=== PATIENT | male | born 1985 | race Caucasian/White ===

== ENCOUNTER 2023-03-20 14:36 | Emergency (ER) | payer OTHER, SELFPAY ==
[2023-03-20 14:51] VITALS: BP 141/86; PULSE 56; RESP 18; TEMP 37; O2SAT 100; BMI 24.3
--- NOTE | 2023-03-20 14:55 | DI.RAD.S_ITS ---
PROCEDURE: XR HAND RT MIN 3V INDICATIONS: right top of hand injury TECHNIQUE: 3 views of the hand(s) acquired. COMPARISON: None. FINDINGS: Bones: No fractures or dislocations. Carpal bones are normally aligned. No suspicious bony lesions. Soft tissues: No suspicious soft tissue calcifications. IMPRESSION: No visualized acute fracture or dislocation. However, if clinical concern and/or pain persist, short interval imaging followup in 7-10 days is recommended, as occult injury cannot be definitively excluded. Dictated by: Lea Seaman M.D. on 03/20/2023 at 15:37 Approved by: Lea Seaman M.D. on 03/20/2023 at 15:38
--- NOTE | 2023-03-20 16:53 | ED.UPPEXIN ---
HPI - Extremity Injury (Upper) <Anali Layton PA-C - Last Filed: 03/20/23 16:57> General Chief Complaint: Extremity Injury, Upper Stated Complaint: Right hand injury Time Seen by Provider: 03/20/23 16:47 Source: patient Mode of arrival: Ambulatory History of Present Illness HPI narrative: Patient is a 37-year-old male who was working with a wrench against a wall when the wrench low back and hit him on the back of the hand while at his place of employment. He immediately had significant pain and swelling of the dorsum of the hand. He applied ice and came to the emergency room. He is no history of significant injury to this hand. He is no significant past medical history. The pain was initially 8/10 but is now 2/10. Related Data Allergies Allergy/AdvReac Type Severity Reaction Status Date / Time No Known Drug Allergies Allergy Verified 03/20/23 14:55 Review of Systems <Anali Layton PA-C - Last Filed: 03/20/23 16:57> Review of Systems ROS Unobtainable: All systems reviewed & are unremarkable except as noted in HPI and below Patient History <Anali Layton PA-C - Last Filed: 03/20/23 16:57> Social History Smoking Status: Never smoker Smoking Status: Never smoker alcohol intake frequency: holidays/special occasions only Substance Use Type: marijuana Exam <Anali Layton PA-C - Last Filed: 03/20/23 16:57> Narrative Exam Narrative: GENERAL: 37 year old patient appears stated age. Well-developed patient, in no distress. NEURO: AOx3. HEAD: Atraumatic. Normocephalic. EYES: Pupils equal round and reactive. Extraocular motions intact. No scleral icterus. No injection or drainage. ENT: Nose without bleeding or purulent drainage. Airway patent. RESPIRATORY: No distress or increased work of breathing EXTREMITIES: 4 x 2 cm area of edema with mild erythema over the dorsum of the right hand. There is no chin in neurovascular exam to the distal fingers. There is no bony tenderness. SKIN: No rash or erythema of visible areas Initial Vital Signs Initial Vital Signs: Vital Signs Temperature 98.6 F 03/20/23 14:51 Pulse Rate 56 L 03/20/23 14:51 Respiratory Rate 18 03/20/23 14:51 Blood Pressure 141/86 H 03/20/23 14:51 Pulse Oximetry 100 03/20/23 14:51 Oxygen Delivery Method Room Air 03/20/23 14:51 <Lanre Beatty MD - Last Filed: 03/20/23 18:04> Initial Vital Signs Initial Vital Signs: Vital Signs Temperature 98.6 F 03/20/23 14:51 Pulse Rate 56 L 03/20/23 14:51 Respiratory Rate 18 03/20/23 14:51 Blood Pressure 141/86 H 03/20/23 14:51 Pulse Oximetry 100 03/20/23 14:51 Oxygen Delivery Method Room Air 03/20/23 14:51 Course <Anali Layton PA-C - Last Filed: 03/20/23 16:57> Orders Ordered: ED Orders 03/20/23 14:55 XR hand RT min 3V Stat Vital Signs Vital signs: Vital Signs - 8 hr 03/20/23 14:51 Temperature 98.6 F Pulse Rate 56 L Respiratory Rate 18 Blood Pressure 141/86 H Pulse Oximetry 100 Oxygen Delivery Method Room Air <Lanre Beatty MD - Last Filed: 03/20/23 18:04> Orders Ordered: ED Orders 03/20/23 14:55 XR hand RT min 3V Stat Vital Signs Vital signs: Vital Signs - 8 hr 03/20/23 14:51 Temperature 98.6 F Pulse Rate 56 L Respiratory Rate 18 Blood Pressure 141/86 H Pulse Oximetry 100 Oxygen Delivery Method Room Air MDM - Extremity Injury (Upper) <Anali Layton PA-C - Last Filed: 03/20/23 16:57> Imaging Data Extremity x-ray #1: Radiologist's Impression: PROCEDURE: XR HAND RT MIN 3V INDICATIONS: right top of hand injury TECHNIQUE: 3 views of the hand(s) acquired. COMPARISON: None. FINDINGS: Bones: No fractures or dislocations. Carpal bones are normally aligned. No suspicious bony lesions. Soft tissues: No suspicious soft tissue calcifications. IMPRESSION: No visualized acute fracture or dislocation. However, if clinical concern and/or pain persist, short interval imaging followup in 7-10 days is recommended, as occult injury cannot be definitively excluded. Dictated by: Lea Seaman M.D. on 03/20/2023 at 15:37 Approved by: Lea Seaman M.D. on 03/20/2023 at 15:38 MDM Narrative Medical decision making narrative: Multiple etiologies for patient's symptoms considered including, but not limited to: Fracture, dislocation, soft tissue injury No fracture identified on x-ray. Discussed RICE. Patient's pain is very manageable when he understands the instructions. Patient's symptoms improved over duration of stay with above-stated therapies. Findings and discharge diagnosis discussed with patient/family followed by verbalization of understanding Return precautions discussed with patient/family whom verbalize understanding of diagnosis and plan Discharge Plan Departure Patient Disposition: Home Clinical Impression: Contusion of hand, not fingers Instructions: How To Perform RICE (Rest, Ice, Compress, Elevate) Activity Restrictions/Additional Instructions: *You have been diagnosed with a contusion and hematoma of your right hand. There is no evidence of fracture on the x-rays. I suspect the swelling may get a little worse over the next 48 hours but then should start to get better. I would advise using ice, rest, elevation, compression and ibuprofen for pain management if needed. If the pain gets worse and then does not resolve by 2 weeks, I would recommend repeat imaging. *What to do: *Please continue to take your regular medications as directed. [ ] New medication prescriptions sent to your pharmacy: [ ] [ ] New medication written as a paper prescription [x] No new medications given *Please follow up with your primary care provider in 2-3 days, call for an appointment. Let them know you were seen in the Emergency Department and that we ask that you be seen in follow up. We will electronically transmit a record of today's note if your PCP is in our system *If you do not have a primary care provider please contact the [facility] Resource line at [phone]. They will ask some questions about your medical history and help get you set up with a doctor in the community. *Return to Emergency Department if you should have any new, worsening or concerning symptoms, such as [fever greater than 101 F, shaking chills, worsening pain, persistent vomiting or other concerning symptoms]. Stand Alone Forms: Patient Portal/API ED Sign-out <Lanre Beatty MD - Last Filed: 03/20/23 18:04> Cosign ED Attending Cosignature Attestation: I was immediately available in the department for consultation. ?This documentation has been reviewed and I agree with assessment and plan. Supervised by Lanre Beatty MD
--- NOTE | 2023-03-20 17:09 | PC.NURSE ---
assessment done by provider.
== END 2023-03-20 17:11 | disposition home or self-care (01) ==
PROVIDERS: Emergency Provider Physician Assistant
DX: S60.221A Contusion of right hand, initial encounter (principal); W22.8XXA Striking against or struck by other objects, initial encounter; Y99.0 Civilian activity done for income or pay
CPT/HCPCS: 73130; 99283